=== PATIENT | female | born 1985 | race African-American/Black ===

== ENCOUNTER 2016-06-20 12:04 | Emergency (ER) | payer MEDICAID ==
[~2016-06-20] VITALS: Ht 167.6 cm; Wt 67.0 kg
[2016-06-20 12:12] VITALS: BP 118/75
[2016-06-20] MEDS ORDERED: CEFTRIAXONE SODIUM 1 G/VIAL IM NR (13:45)
[2016-06-20] MEDS ORDERED: LIDOCAINE HCL 1% 20ML VIAL (Pyxis) INJ MC NR (13:45)
[2016-06-20 14:38] LABS: HCG SCREEN NEGATIVE
== END 2016-06-20 15:15 | disposition home or self-care (01) ==
LOC: ER 12:04
DX: L03.115 Cellulitis of right lower limb (principal); L20.9 Atopic dermatitis, unspecified; M79.671 Pain in right foot; F17.210 Nicotine dependence, cigarettes, uncomplicated; Z71.6 Tobacco abuse counseling
CPT/HCPCS: 84703; 96372; 99283; J0696; J3490

== ENCOUNTER 2024-08-28 07:38 | Emergency (ER) | payer MEDICAID ==
[~2024-08-28] VITALS: Ht 167.6 cm; Wt 88.0 kg
[2024-08-28 07:40] VITALS: O2SAT 97
[2024-08-28 08:26] LABS: CLARITY URINE CLOUDY (CLEAR); COLOR URINE YELLOW (YELLOW); GLUCOSE URINE NEGATIVE (NEGATIVE); KETONES URINE 1+ (NEGATIVE); LEUKOCYTE ESTERASE URINE 1+ (NEGATIVE); NITRITE URINE NEGATIVE (NEGATIVE); OCCULT BLOOD URINE NEGATIVE (NEGATIVE); PROTEIN URINE 1+ (NEGATIVE)
[2024-08-28 08:41] LABS: BACTERIA URINE 2+; SQUAMOUS EPITHELIAL CELL URINE 1+ /lpf (RARE/1+); WBC URINE 15-25 /hpf (0-2); YEAST URINE NONE SEEN
[2024-08-28 09:56] LABS: BASOPHILS % 0.3 % (0.0-2.0); DIFFERENTIAL COMMENT 0; EOSINOPHILS % 0.7 % (0.0-5.0); HEMATOCRIT. 32.6 % (36.0-48.0); HEMOGLOBIN. 11.1 g/dL (12.0-16.0); LYMPHOCYTES % 24.4 % (20.0-50.0); MEAN CORPUSCULAR HEMOGLOBIN 27.2 pg (28.0-32.0); MEAN CORPUSCULAR VOLUME 79.8 fL (81.0-99.0); MEAN PLATELET VOLUME 7.5 fl (7.4-10.4); MONOCYTES % 4.8 % (2.0-8.0); NEUTROPHILS % 69.8 % (40.0-76.0); PLATELET 239 x1000/uL (130-400); RED BLOOD CELL COUNT 4.09 mill/uL (4.2-5.4); RED CELL DISTRIBUTION WIDTH 15.4 % (11.6-14.6); WHITE BLOOD COUNT 7.9 x1000/uL (4.5-11.0)
[2024-08-28 10:10] LABS: CHLORIDE 103 mEq/L (98-107); POTASSIUM 3.7 mEq/L (3.5-5.1); SODIUM 136 mEq/L (136-145)
[2024-08-28 10:11] LABS: CALCIUM 9.2 mg/dL (8.7-10.4); CARBON DIOXIDE 23 mEq/L (21-32)
[2024-08-28 10:16] LABS: CREATININE 0.6 mg/dL (0.6-1.0); GLUCOSE 96 mg/dL (70-105); UREA NITROGEN BLOOD 6 mg/dL (9-23)
[2024-08-28 10:26] LABS: HCG SCREEN POSITIVE
[2024-08-28] MEDS ORDERED: CEFP200T14 MT (11:36)
[2024-08-28 12:50] VITALS: BP 115/79; PULSE 89; RESP 16; TEMP 36.6; O2SAT 99
== END 2024-08-28 13:14 | disposition home or self-care (01) ==
LOC: ER 07:38
DX: O20.0 Threatened abortion (principal); O23.41 Unspecified infection of urinary tract in pregnancy, first trimester; Z3A.12 12 weeks gestation of pregnancy
CPT/HCPCS: 36415; 76801; 80048; 81003; 81025; 84702; 84703; 85025; 86850; 86900; 87077; 87186; 99284